=== PATIENT | female | born 1965 | race Caucasian/White ===

== ENCOUNTER → 2016-09-30 | Outpatient (REF) | payer BC ==
[~2016-09-30] MED LIST: FLUO20CA8 PO; LEVO112T25 PO; LISI20TA3 PO; MULT1TAB10 PO; SIMV20TA2 PO; VITA100067 PO; vitamin b PO
[2016-09-30 13:37] LABS: ALBUMIN 3.7 GM/DL (3.2-5.2); ALBUMIN/GLOBULIN RATIO 1.16 (1.00-1.93); ALKALINE PHOSPHATASE 75 U/L (45-117); ALT/SGPT 29 U/L (12-78); ANION GAP 8 MEQ/L (8-16); AST/SGOT 16 U/L (15-37); BILIRUBIN,TOTAL 0.4 MG/DL (0.2-1.0); BLOOD UREA NITROGEN 14 MG/DL (7-18); CALCIUM LEVEL 9.1 MG/DL (8.5-10.1); CARBON DIOXIDE LEVEL 29 MEQ/L (21-32); CHLORIDE LEVEL 103 MEQ/L (98-107); CHOLESTEROL LEVEL 203 MG/DL (<200); CREATININE FOR GFR 0.64 MG/DL (0.55-1.02); FREE T4 1.03 NG/DL (0.76-1.46); GLOMERULAR FILTRATION RATE > 60.0 (>51); GLUCOSE, FASTING 96 MG/DL (70-105); POTASSIUM SERUM 4.1 MEQ/L (3.5-5.1); SODIUM LEVEL 140 MEQ/L (136-145); TOTAL PROTEIN 6.9 GM/DL (6.4-8.2); TRIGLYCERIDES LEVEL 197 MG/DL (<150)
== END ==
LOC: M LABDRWAD 12:09
PROVIDERS: ATTEND Emergency Medicine
DX: I10 Essential (primary) hypertension (principal); E78.2 Mixed hyperlipidemia; E03.9 Hypothyroidism, unspecified; E55.9 Vitamin D deficiency, unspecified

== ENCOUNTER 2017-01-09 06:37 | Day surgery (SDC) | payer BC ==
[~2017-01-09] VITALS: Ht 177.8 cm; Wt 132.9 kg
[2017-01-09] MEDS ORDERED: NS 1,000 ML IV ONE (06:45)
[2017-01-09] MEDS ORDERED: PROPOFOL 200 MG/20 ML VIAL As Ordered ONE ×2 (08:05→08:13)
--- NOTE | 2017-01-09 08:24 | ROOR ---
Patient Name: Deepthi Solomon Procedure Date: 01/09/2017 8:04 AM Date of : 1965 Age: 51 Room: [facility] Gender: Female Note Status: Finalized Procedure: Total Colonoscopy to Cecum Indications: Screening for colorectal malignant neoplasm Providers: Salomon Lebron MD Referring MD: ALIN DODGE MD Requesting Provider: Medicines: Monitored Anesthesia Care Complications: No immediate complications. Procedure: Pre-Anesthesia Assessment: - The heart rate, respiratory rate, oxygen saturations, blood pressure, adequacy of pulmonary ventilation, and response to care were monitored throughout the procedure. The Colonoscope was introduced through the anus and advanced to the cecum, identified by appendiceal orifice and ileocecal valve. The colonoscopy was performed without difficulty. The patient tolerated the procedure well. The quality of the bowel preparation was excellent. Findings: The perianal and digital rectal examinations were normal. Non-bleeding internal hemorrhoids were found during retroflexion. The hemorrhoids were small and Grade I (internal hemorrhoids that do not prolapse). No other significant abnormalities were identified in a careful examination of the remainder of the colon. The exam was otherwise without abnormality on direct and retroflexion views. Impression: - Non-bleeding internal hemorrhoids. - The examination was otherwise normal on direct and retroflexion views. - No specimens collected. - The exam was otherwise normal to the cecum. Recommendation: - Patient has a contact number available for emergencies. The signs and symptoms of potential delayed complications were discussed with the patient. Return to normal activities tomorrow. Written discharge instructions were provided to the patient. - High fiber diet. - Discharge patient to home. - Continue present medications. - Repeat colonoscopy in 10 years for screening purposes. - Return to referring physician. - The findings and recommendations were discussed with the patient's family. Salomon Lebron MD Salomon Lebron MD 01/09/2017 8:23:55 AM This report has been signed electronically. Number of Addenda: 0 Note Initiated On: 01/09/2017 8:04 AM Estimated Blood Loss: Estimated blood loss: none.
[2017-01-09 08:44] VITALS: BP 127/84
== END 2017-01-09 08:53 | disposition home or self-care (01) ==
LOC: M OPP 06:37 → EDSTATUS 08:00 → M OPP 08:53
PROVIDERS: ATTEND Internal Medicine Gastroenterology
DX: Z12.11 Encounter for screening for malignant neoplasm of colon (principal); K64.0 First degree hemorrhoids; I10 Essential (primary) hypertension; E78.5 Hyperlipidemia, unspecified; E03.9 Hypothyroidism, unspecified; R06.83 Snoring; Z91.048 Other nonmedicinal substance allergy status; Z79.899 Other long term (current) drug therapy; Z80.42 Family history of malignant neoplasm of prostate; Z80.41 Family history of malignant neoplasm of ovary

== ENCOUNTER → 2017-04-24 | Outpatient (CLI) | payer BC | LOC: M WHC 14:58 | DX: Z12.31 Encounter for screening mammogram for malignant neoplasm of breast (principal) | CPT/HCPCS: 77067 ==

== ENCOUNTER → 2017-04-27 | Outpatient (REF) | payer BC | LOC: M SFHCWAGY 09:07 | DX: Z12.4 Encounter for screening for malignant neoplasm of cervix (principal) | CPT/HCPCS: G0123 ==

== ENCOUNTER → 2017-10-03 | Outpatient (CLI) | payer BC ==
[2017-10-03 17:23] LABS: ALBUMIN 3.9 GM/DL (3.2-5.2); ALBUMIN/GLOBULIN RATIO 1.08 (1.00-1.93); ALKALINE PHOSPHATASE 81 U/L (45-117); ALT/SGPT 29 U/L (12-78); ANION GAP 8 MEQ/L (8-16); AST/SGOT 16 U/L (7-37); BILIRUBIN,TOTAL 0.4 MG/DL (0.2-1.0); BLOOD UREA NITROGEN 14 MG/DL (7-18); CALCIUM LEVEL 8.6 MG/DL (8.5-10.1); CARBON DIOXIDE LEVEL 30 MEQ/L (21-32); CHLORIDE LEVEL 105 MEQ/L (98-107); CHOLESTEROL LEVEL 206 MG/DL (<200); CHOLESTEROL RISK RATIO 4.478 (<5); CREATININE FOR GFR 0.68 MG/DL (0.55-1.30); FREE T4 0.97 NG/DL (0.76-1.46); GLOMERULAR FILTRATION RATE > 60.0 (>51); GLUCOSE, FASTING 101 MG/DL (70-100); HDL CHOLESTEROL 46 MG/DL (>40); NON-HDL-C 160 MG/DL; POTASSIUM SERUM 3.8 MEQ/L (3.5-5.1); SODIUM LEVEL 143 MEQ/L (136-145); TOTAL PROTEIN 7.5 GM/DL (6.4-8.2); TRIGLYCERIDES LEVEL 260 MG/DL (<150)
[2017-10-05 12:32] LABS: TOTAL 25(OH) VITAMIN D 24.1 NG/ML (30.0-100.0)
== END ==
LOC: M ADAMS 08:45
DX: I10 Essential (primary) hypertension (principal); E78.2 Mixed hyperlipidemia; E03.9 Hypothyroidism, unspecified; E55.9 Vitamin D deficiency, unspecified
CPT/HCPCS: 84443

== ENCOUNTER → 2018-01-22 | Outpatient (REF) | payer BC | LOC: M LAB REF 10:35 | DX: B07.9 Viral wart, unspecified (principal) | CPT/HCPCS: 88305 ==

== ENCOUNTER → 2018-06-22 | Outpatient (CLI) | payer BC ==
--- NOTE | 2018-06-22 16:03 | REPMRS ---
Patient History The patient states she had a clinical breast exam in 06/2018. Family history of ovarian cancer at age 40 in maternal grandmother. No Hormone Replacement Therapy 3D TOMOSYNTHESIS WAS PERFORMED. Digital Woman Screen Mammo: June 22, 2018 - Exam #: [id number] Bilateral CC and MLO view(s) were taken. Technologist: Nataly Morgan, Technologist Prior study comparison: April 24, 2017, digital woman screen mammo performed at [facility] [employer] [facility]. February 26, 2016, digital woman screen mammo performed at [facility] [employer] to [facility]. FINDINGS: There are scattered fibroglandular densities. There has been no change in the appearance of the mammogram from the prior studies. There is a mild amount of residual fibroglandular tissue which is fairly symmetric. There is no interval development of dominant mass, architectural distortion, or clustered microcalcification suggestive of malignancy. Assessment: BI-RADS/ACR category 1 mammogram. Negative Mammogram. Recommendation Routine screening mammogram in 1 year (for women over age 40). This mammogram was interpreted with the aid of an FDA-approved computer-aided dectection system. Electronically Signed By: Rah Talbot MD 06/22/18 [id number]
== END ==
LOC: M WHC 14:56
PROVIDERS: ATTEND Nurse Practitioner Family
DX: Z12.31 Encounter for screening mammogram for malignant neoplasm of breast (principal)

== ENCOUNTER → 2018-12-31 | Outpatient (REF) | payer BC ==
[~2018-12-31] MED LIST changes: +LISI20TA20 PO; -LISI20TA3 PO
[2018-12-31 13:18] LABS: ALBUMIN 3.9 GM/DL (3.2-5.2); ALT/SGPT 27 U/L (12-78); BILIRUBIN,TOTAL 0.5 MG/DL (0.2-1.0); BLOOD UREA NITROGEN 17 MG/DL (7-18); CALCIUM LEVEL 9.4 MG/DL (8.5-10.1); CARBON DIOXIDE LEVEL 30 MEQ/L (21-32); CHLORIDE LEVEL 103 MEQ/L (98-107); CHOLESTEROL LEVEL 199 MG/DL (<200); CHOLESTEROL RISK RATIO 3.901 (<5); CREATININE FOR GFR 0.81 MG/DL (0.55-1.30); FREE T4 1.01 NG/DL (0.76-1.46); GLOMERULAR FILTRATION RATE > 60.0 (>51); GLUCOSE, FASTING 95 MG/DL (70-100); HDL CHOLESTEROL 51 MG/DL (>40); LDL CHOLESTEROL 103 MG/DL (<100); NON-HDL-C 148 MG/DL; SODIUM LEVEL 141 MEQ/L (136-145); TOTAL PROTEIN 7.4 GM/DL (6.4-8.2); TRIGLYCERIDES LEVEL 226 MG/DL (<150)
[2018-12-31 13:45] LABS: TOTAL 25(OH) VITAMIN D 49.6 NG/ML (30.0-100.0)
== END ==
LOC: M LABDRWAD 12:28
PROVIDERS: ATTEND Physician Assistant
DX: E03.9 Hypothyroidism, unspecified (principal); E55.9 Vitamin D deficiency, unspecified; I10 Essential (primary) hypertension; E78.2 Mixed hyperlipidemia

== ENCOUNTER → 2019-08-26 | Outpatient (CLI) | payer BC ==
[~2019-08-26] MED LIST changes: +FLUO20CA20 PO; -FLUO20CA8 PO; -SIMV20TA2 PO; +SIMV20TA22 PO
--- NOTE | 2019-08-26 17:18 | REPMRS ---
Patient History The patient states she had a clinical breast exam in August 2019.Family history of ovarian cancer at age 40 in maternal grandmother. No Hormone Replacement Therapy 3D TOMOSYNTHESIS WAS PERFORMED. [facility] for [facility] 11.8%. [facility]. Digital Woman Screen Mammo: August 26, 2019 - Exam #: [id number] Bilateral CC and MLO view(s) were taken. Technologist: Genna Asher, Technologist Prior study comparison: June 22, 2018, bilateral digital woman screen mammo performed at [facility]. April 24, 2017, digital woman screen mammo performed at [facility]. FINDINGS: There are scattered fibroglandular densities. There has been no change in the appearance of the mammogram from the prior studies. There is a mild amount of residual fibroglandular tissue which is fairly symmetric. There is no interval development of dominant mass, architectural distortion, or clustered microcalcification suggestive of malignancy. Assessment: BI-RADS/ACR category 1 mammogram. Negative Mammogram. Recommendation Routine screening mammogram in 1 year (for women over age 40). This mammogram was interpreted with the aid of an FDA-approved computer-aided dectection system. Electronically Signed By: Rah Talbot MD 08/26/19 [id number]
== END ==
LOC: M WHC 14:59
PROVIDERS: ATTEND Nurse Practitioner Family
DX: Z12.31 Encounter for screening mammogram for malignant neoplasm of breast (principal)

== ENCOUNTER → 2020-03-08 | Outpatient (REF) | payer BC ==
[2020-03-08 14:11] LABS: BASO % 0.6 % (0.0-1.0); EOS # 0.1 10^3/uL (0.0-0.5); EOS % 2.9 % (0.0-3.0); HEMATOCRIT 41.6 % (36.0-47.0); HEMOGLOBIN 13.3 g/dl (12.0-15.5); LYMPH # 1.5 10^3/uL (1.5-5.0); LYMPH % 30.8 % (24.0-44.0); MEAN CORPUSCULAR HEMOGLOBIN 29.2 pg (27.0-33.0); MEAN CORPUSCULAR VOLUME 91.2 fl (80.0-96.0); MONO # 0.5 10^3/uL (0.0-0.8); MONO % 10.1 % (0.0-5.0); NEUTROPHILS # 2.7 10^3/uL (1.5-8.5); NEUTROPHILS % 55.4 % (36.0-66.0); PLATELET COUNT, AUTOMATED 276 10^3/uL (150-450); RED BLOOD COUNT 4.56 10^6/uL (4.00-5.40); WHITE BLOOD COUNT 4.8 10^3/uL (4.0-10.0)
[2020-03-08 14:20] LABS: ALT/SGPT 38 U/L (12-78); BILIRUBIN,TOTAL 0.5 MG/DL (0.2-1.0); BLOOD UREA NITROGEN 15 MG/DL (7-18); CALCIUM LEVEL 9.5 MG/DL (8.5-10.1); CARBON DIOXIDE LEVEL 31 MEQ/L (21-32); CHLORIDE LEVEL 104 MEQ/L (98-107); CHOLESTEROL LEVEL 223 MG/DL (<200); CHOLESTEROL RISK RATIO 4.551 (<5); CREATININE FOR GFR 0.69 MG/DL (0.55-1.30); GLOMERULAR FILTRATION RATE > 60.0 (>51); GLUCOSE, FASTING 98 MG/DL (70-100); HDL CHOLESTEROL 49 MG/DL (>40); LDL CHOLESTEROL 127 MG/DL (<100); NON-HDL-C 174 MG/DL; SODIUM LEVEL 139 MEQ/L (136-145); TOTAL 25(OH) VITAMIN D 47.3 NG/ML (30.0-100.0); TOTAL PROTEIN 7.7 GM/DL (6.4-8.2); TRIGLYCERIDES LEVEL 233 MG/DL (<150)
== END ==
LOC: M LABDRWAD 12:09
PROVIDERS: ATTEND Family Medicine
DX: E55.9 Vitamin D deficiency, unspecified (principal); I10 Essential (primary) hypertension; E03.9 Hypothyroidism, unspecified

== ENCOUNTER → 2020-10-25 | Outpatient (CLI) | payer BC ==
--- NOTE | 2020-10-25 16:31 | REPMRS ---
Patient History The patient states she had a clinical breast exam in October 2020. Family history of ovarian cancer at age 40 in maternal grandmother. No Hormone Replacement Therapy Patient states no breast complaints today. Patient has signed MRS History Sheet. Digital Woman Screen Mammo: October 25, 2020 - Exam #: [id number] Bilateral CC and MLO view(s) were taken. Technologist: Karen Blanc, Technologist Prior study comparison: August 26, 2019, bilateral digital woman screen mammo performed at [facility]. June 22, 2018, bilateral digital woman screen mammo performed at [facility]. FINDINGS: The breast tissue is almost entirely fat. Screening. Digital screening (2D) mammography was performed bilaterally in the CC and MLO projections. Additionally, breast tomosynthesis (3D mammography) was performed bilaterally in the CC and MLO projections. Todays exam was compared to the prior exam/exams. By history, the patient has no complaints of a palpable breast abnormality or other significant breast complaints. The breasts are unchanged in size and shape. There are no hortencia-soft tissue densities or spiculated masses. There is no internal architectural distortion. There are no suspicious hortencia-calcific clusters. Skin thickening or nipple retraction is not present. IMPRESSION: BI-RADS Category 2- Benign Findings. There is no evidence of malignant alteration of the breasts. Followup examination recommended in one year. The Volpara volumetric breast density category is A, the breasts are almost entirely fatty. This mammogram was read with the assistance of [facility],an FDA approved computer aided detection system for mammography. The lifetime Tyrer-Cuzick score is 11.3 % Negative x-ray reports should not delay surgical consultation if a dominant or clinically suspicious mass is present. Not all breast cancers can be identified by mammography. Therefore, we recommend that you continue to perform regular breast self-examination and physical examination and then promptly contact your physician of any concerns or changes. Adenosis and dense breasts may obscure an underlying neoplasm. Assessment: BI-RADS/ACR category 2 mammogram. Benign Findings. Recommendation Routine screening mammogram of both breasts in 1 year. Electronically Signed By: Jose Manuel Hollis MD 10/25/20 [id number]
== END ==
LOC: M WHC 15:29
PROVIDERS: ATTEND Nurse Practitioner Women's Health
DX: Z12.31 Encounter for screening mammogram for malignant neoplasm of breast (principal)

== ENCOUNTER → 2020-10-25 | Outpatient (REF) | payer BC | LOC: M SFHCWAGY 12:24 | PROVIDERS: ATTEND Nurse Practitioner Women's Health | DX: Z12.4 Encounter for screening for malignant neoplasm of cervix (principal) | CPT/HCPCS: 87624; G0123 ==

== ENCOUNTER → 2021-01-11 | Outpatient (REF) | payer BC ==
[2021-01-11 13:42] LABS: ALBUMIN 3.6 GM/DL (3.2-5.2); ALT/SGPT 54 U/L (12-78); BILIRUBIN,TOTAL 0.5 MG/DL (0.2-1.0); BLOOD UREA NITROGEN 13 MG/DL (7-18); CALCIUM LEVEL 8.8 MG/DL (8.5-10.1); CARBON DIOXIDE LEVEL 31 MEQ/L (21-32); CHLORIDE LEVEL 104 MEQ/L (98-107); CHOLESTEROL LEVEL 204 MG/DL (<200); CHOLESTEROL RISK RATIO 5.513 (<5); CREATININE FOR GFR 0.75 MG/DL (0.55-1.30); GLOMERULAR FILTRATION RATE > 60.0 (>51); GLUCOSE, FASTING 93 MG/DL (70-100); HDL CHOLESTEROL 37 MG/DL (>40); LDL CHOLESTEROL 113 MG/DL (<100); NON-HDL-C 167 MG/DL; POTASSIUM SERUM 3.9 MEQ/L (3.5-5.1); SODIUM LEVEL 140 MEQ/L (136-145); TOTAL PROTEIN 7.2 GM/DL (6.4-8.2); TRIGLYCERIDES LEVEL 270 MG/DL (<150)
== END ==
LOC: M LABDRWAD 12:48
PROVIDERS: ATTEND Nurse Practitioner Family
DX: Z00.00 Encounter for general adult medical examination without abnormal findings (principal); E03.9 Hypothyroidism, unspecified; I10 Essential (primary) hypertension

== ENCOUNTER → 2021-12-26 | Outpatient (CLI) | payer BC, OTHER, SELFPAY ==
[~2021-12-26] MED LIST changes: +FLUO-96 PO; -FLUO20CA20 PO; -LISI20TA20 PO; +LISI20TA37 PO
== END ==
LOC: M WHC 15:13
PROVIDERS: ATTEND Nurse Practitioner Family
DX: Z12.31 Encounter for screening mammogram for malignant neoplasm of breast (principal)

== ENCOUNTER → 2021-12-26 | Outpatient (REF) | payer MEDICARE, OTHER | LOC: M SFHCWAGY 17:36 | PROVIDERS: ATTEND Nurse Practitioner Family | DX: Z12.4 Encounter for screening for malignant neoplasm of cervix (principal) | CPT/HCPCS: 87624; G0123 ==

== ENCOUNTER → 2022-01-31 | Outpatient (REF) | payer OTHER | LOC: M LAB REF 12:02 | PROVIDERS: ATTEND Nurse Practitioner Adult Health | DX: M10.9 Gout, unspecified (principal) ==

== ENCOUNTER → 2022-02-24 | Outpatient (CLI) | payer OTHER | LOC: M WHC 07:05 | PROVIDERS: ATTEND Nurse Practitioner Adult Health | DX: N93.9 Abnormal uterine and vaginal bleeding, unspecified (principal) ==

== ENCOUNTER → 2022-05-14 | Outpatient (CLI) | payer MEDICARE, OTHER ==
[~2022-05-14] MED LIST changes: +ALLO300T2 PO; +D3 H2000 PO; +NORV5TAB PO; +ROSU10TA6 PO; +VITMTA PO
== END ==
LOC: M LABSMTC 11:07
PROVIDERS: ATTEND Anesthesiology
DX: Z01.818 Encounter for other preprocedural examination (principal); Z11.52 Encounter for screening for COVID-19

== ENCOUNTER 2022-05-19 09:53 | Day surgery (SDC) | payer OTHER ==
[~2022-05-19] VITALS: Ht 175.3 cm; Wt 134.6 kg
[2022-05-19 10:35] LABS: HEMATOCRIT 40.5 % (36.0-47.0); HEMOGLOBIN 13.8 g/dl (12.0-15.5); MEAN CORPUSCULAR HEMOGLOBIN 30.9 pg (27.0-33.0); MEAN CORPUSCULAR HGB CONC 34.1 g/dl (32.0-36.5); MEAN CORPUSCULAR VOLUME 90.6 fl (80.0-96.0); PLATELET COUNT, AUTOMATED 239 10^3/uL (150-450); RED BLOOD COUNT 4.47 10^6/uL (4.00-5.40); WHITE BLOOD COUNT 5.4 10^3/uL (4.0-10.0)
[2022-05-19] MEDS ORDERED: LR 1,000 ML IV SCH ×3 (10:40→14:30)
[2022-05-19] MEDS ORDERED: propofoL 200 MG/20 ML VIAL As Ordered ONE (10:45)
[2022-05-19] MEDS ORDERED: LIDOCAINE 2% 100MG/5ML SDV (FOR ANES.) As Ordered ONE (10:45)
[2022-05-19] MEDS ORDERED: ONDANSETRON 4MG 2ML VIAL As Ordered ONE (10:45)
[2022-05-19] MEDS ORDERED: KETOROLAC 60MG 2ML VIAL As Ordered ONE ×2 (10:48→13:39)
[2022-05-19] MEDS ORDERED: MIDAZOLAM INJ 2MG/2ML VIAL As Ordered ONE (13:10)
[2022-05-19] MEDS ORDERED: fentaNYL 100 MCG/2 ML INJECTION As Ordered ONE (13:10)
[2022-05-19] MEDS ORDERED: ACETAMINOPHEN 1000MG 100ML IV BAG As Ordered ONE (13:33)
[2022-05-19] MEDS ORDERED: METOCLOPRAMIDE INJ 10MG/2ML VIAL IV PRN (14:00)
[2022-05-19] MEDS ORDERED: fentaNYL 100 MCG/2 ML INJECTION IV PRN (14:00)
[2022-05-19] MEDS ORDERED: ONDANSETRON 4MG 2ML VIAL IV PRN (14:00)
[2022-05-19] MEDS ORDERED: oxyCODONE 5MG TAB PO PRN (14:00)
[2022-05-19] MEDS ORDERED: ACETAMINOPHEN 500 MG TAB PO ONE (14:35)
[2022-05-19 14:44] VITALS: BP 165/88
== END 2022-05-19 15:15 | disposition home or self-care (01) ==
LOC: M SDC 09:53
PROVIDERS: ATTEND Specialist
DX: N95.0 Postmenopausal bleeding (principal); E03.9 Hypothyroidism, unspecified; I10 Essential (primary) hypertension; E78.5 Hyperlipidemia, unspecified; M10.9 Gout, unspecified; Z87.891 Personal history of nicotine dependence; Z79.899 Other long term (current) drug therapy; Z79.890 Hormone replacement therapy
CPT/HCPCS: 36415; 58558; 85027; 88305; J0131; J1100; J1885; J2250; J2405; J3010

== ENCOUNTER → 2022-12-09 | Outpatient (REF) | payer OTHER, MEDICARE | LOC: M LAB REF 16:56 | PROVIDERS: ATTEND Internal Medicine | DX: M10.9 Gout, unspecified (principal) ==

== ENCOUNTER → 2023-06-11 | Outpatient (CLI) | payer OTHER | LOC: M WHC 15:24 | PROVIDERS: ATTEND Nurse Practitioner Family | DX: Z12.31 Encounter for screening mammogram for malignant neoplasm of breast (principal) ==

== ENCOUNTER → 2023-06-11 | Outpatient (REF) | payer OTHER | LOC: M SFHCWAGY 10:04 | PROVIDERS: ATTEND Nurse Practitioner Family | DX: Z01.419 Encounter for gynecological examination (general) (routine) without abnormal findings (principal); Z77.9 Other contact with and (suspected) exposures hazardous to health | CPT/HCPCS: 87624; G0123 ==

== ENCOUNTER → 2023-12-09 | Outpatient (REF) | payer OTHER ==
[~2023-12-09] MED LIST changes: -ROSU10TA6 PO; +ROSU10TA61 PO
== END ==
LOC: M LAB REF 12:37
PROVIDERS: ATTEND Internal Medicine
DX: M10.9 Gout, unspecified (principal)

== ENCOUNTER → 2024-06-16 | Outpatient (CLI) | payer OTHER | LOC: M WHC 15:24 | PROVIDERS: ATTEND Internal Medicine | DX: Z12.31 Encounter for screening mammogram for malignant neoplasm of breast (principal) ==

== ENCOUNTER → 2024-11-10 | Outpatient (CLI) | payer OTHER | LOC: M WHC 13:06 | PROVIDERS: ATTEND Specialist | DX: N95.0 Postmenopausal bleeding (principal); R93.89 Abnormal findings on diagnostic imaging of other specified body structures ==

== ENCOUNTER → 2025-02-24 | Outpatient (CLI) | payer OTHER ==
[~2025-02-24] MED LIST changes: +IBUP600T42 PO; +LISI20TA35 PO; +OXYC1TAB23 PO; -ROSU10TA61 PO; +ROSU10TA90 PO
== END ==
LOC: M EKG 16:28
PROVIDERS: ATTEND Family Medicine
DX: Z01.818 Encounter for other preprocedural examination (principal)

== ENCOUNTER 2025-03-06 08:46 | Day surgery (SDC) | payer OTHER ==
[~2025-03-06] VITALS: Ht 175.3 cm; Wt 135.9 kg
[~2025-03-06 08:46] MED LIST changes: -IBUP600T42 PO; +KETOROLAC 30 MG/ML 1 ML VIAL As Ordered ONE; +LIDOCAINE 2% 100 MG/5 ML SDV (FOR ANES.) As Ordered ONE; +MIDAZOLAM INJ 2 MG/2 ML VIAL As Ordered ONE; +ONDANSETRON 4MG/2ML VIAL As Ordered ONE; -OXYC1TAB23 PO; +ROCURONIUM BROMIDE 50MG/5ML VIAL As Ordered ONE; +ceFAZolin SOD 2 GM IV ONCE IV ONE; +dexAMETHasone 4 MG/ML 1 ML VIAL As Ordered ONE
[2025-03-06] MEDS: LR 1,000 ML IV SCH (09:10)
[2025-03-06 09:13] LABS: PLATELET COUNT, AUTOMATED 278 10^3/uL (150-450)
[2025-03-06] MEDS: ceFAZolin SOD 3 GM in DEXTROSE 5% (D5W) MINI-BAG PLU 1... IV ONE (10:00)
[2025-03-06] MEDS ORDERED: HYDROmorphone HCL 2 MG/ML 1 ML VIAL As Ordered ONE (10:39)
[2025-03-06] MEDS ORDERED: SUGAMMADEX SODIUM 500 MG/5 ML VIAL As Ordered ONE (10:40)
[2025-03-06] MEDS ORDERED: ONDANSETRON 4MG/2ML VIAL IV PRN (11:10)
[2025-03-06] MEDS ORDERED: LR 1,000 ML IV SCH (11:10)
[2025-03-06] MEDS ORDERED: HYDROMORPHONE HCL 0.5 MG/0.5 ML SYRINGE IV PRN (11:10)
[2025-03-06] MEDS ORDERED: IBUP600T42 PO (13:34)
[2025-03-06] MEDS ORDERED: OXYC1TAB23 PO (13:35)
[2025-03-06 14:10] VITALS: BP 139/77; TEMP 97; O2SAT 98
== END 2025-03-06 14:20 | disposition home or self-care (01) ==
LOC: M SDC 08:46
PROVIDERS: ATTEND Specialist
DX: N95.0 Postmenopausal bleeding (principal); N84.0 Polyp of corpus uteri; I10 Essential (primary) hypertension; E78.00 Pure hypercholesterolemia, unspecified; E03.9 Hypothyroidism, unspecified; M10.9 Gout, unspecified; Z79.899 Other long term (current) drug therapy; Z79.890 Hormone replacement therapy; Z87.891 Personal history of nicotine dependence
CPT/HCPCS: 36415; 58571; 85027; 86850; 86900; 86901; 88307; J0665; J0688; J1100; J1171; J1885; J2250; J2405; J3010; S2900